=== PATIENT | female | born 1990 | race Caucasian/White ===

== ENCOUNTER 2016-10-28 21:56 | Inpatient (IN) | payer BC, OTHER ==
[2016-10-28] MEDS ORDERED: DEXTROSE 5%-LACTATED RINGERS 1,000 ML IV SCH (22:30)
--- NOTE | 2016-10-28 23:34 | HP ---
Past Medical History - Primary Care Physician PCP:: Audrey Pimentel - Admission Chief Complaint: 26 yo P0 @ 38.1 wks c/o LOF, -VB, +FM, some ctx;. gush witnessed on the beding, Nit + History of Present Illness: LOF clear @ 7:45pm History Source: Patient - Past Medical History Pulmonary: Yes: Asthma (Mild no attacks during , never intubated, never on steroids) ...: 1 ...Para: 0 ... 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 [employer] Home Medications - Allergies Allergies/Adverse Reactions: Allergies Allergy/AdvReac Type Severity Reaction Status Date / Time No Known Allergies Allergy Verified 06/03/16 10:01 - Home Medications Home Medications: Ambulatory Orders NK [No Known Home Medication] 06/03/16 Home Medications (free text): Albuterol neb Family Disease History - Family Disease History Family History: Denies Review of Systems - Review of Systems Constitutional: reports: No Symptoms Eyes: reports: No Symptoms HENT: reports: No Symptoms Neck: reports: No Symptoms Cardiovascular: reports: No Symptoms Respiratory: reports: No Symptoms Gastrointestinal: reports: No Symptoms Genitourinary: reports: No Symptoms Breasts: reports: No Symptoms Reported Musculoskeletal: reports: No Symptoms Integumentary: reports: No Symptoms Neurological: reports: No Symptoms, Weakness Hematology/Lymphatic: reports: No Symptoms Psychiatric: reports: No Symptoms Pain Intensity: 1 Physical Exam - Maternity Vital Signs: Vital Signs Temperature 99.4 F 10/28/16 23:00 Pulse Rate 92 H 10/28/16 23:00 Respiratory Rate 92 H 10/28/16 23:00 Blood Pressure 119/71 10/28/16 23:00 O2 Sat by Pulse Oximetry (%) Constitutional: Yes: Well Nourished HENT: Yes: WNL Neck: Yes: WNL Cardiovascular: Yes: WNL Lungs: Clear to auscultation Breast(s): Yes: WNL - Abdominal Exam/OB Fundal Height: 38 (EFW 6.5lb) Number of Fetuses: Single Presentation: Vertex Contractions: Yes Regularity: Irregular Intensity: Mild Monitor Mode: External Heart Rate (range): 140 Heart Rate Location: [facility] Category: I Accelerations: Uniform Decelerations: None - Vaginal Exam/OB Vaginal Bleediing: No Speculum Exam: No (gross pulling, leackage) Dilatation (cm): 2 Effacement (%): 70 Amniotic Membrane Status: Ruptured Nitrazine Test: Positive Amniotic Fluid: Yes: Clear Presentation: Vertex/Position Station: -3 - Physical Exam Extremities: Yes: WNL Psychiatric: Yes: WNL Problem List - Problems (1) Asthma affecting , antepartum Code(s): O99.519 - DISEASES OF THE RESP SYS COMP , UNSP TRIMESTER J45.909 - UNSPECIFIED ASTHMA, UNCOMPLICATED Assessment/Plan 26 yo P0 @ 38.1 wks with PROM in early labor Admit to L&D Send Admit labs MF status reassuring Start Pitocin augmentation Pain management as needed
[2016-10-28 23:44] LABS: BASOPHIL 1.1 % (0-2.0); EOSINOPHIL 1.8 % (0-4.5); MCH 29.5 pg (25.7-33.7); MCHC 33.8 g/dl (32.0-36.0); MEAN CELL VOLUME 87.2 fl (80-96); MEAN PLT VOLUME 7.9 fl (7.5-11.1); NEUTROPHILS 65.6 % (42.8-82.8); PLATELET COUNT 332 K/MM3 (134-434); RDW 13.8 % (11.6-15.6); WHITE BLOOD COUNT 10.8 K/mm3 (4.0-10.0)
[2016-10-28 23:58] LABS: INR 0.93 (0.82-1.09); PROTHROMBIN TIME (PATIENT) 10.2 SEC (9.98-11.88)
[2016-10-29] MEDS ORDERED: OXYTOCIN 15 UNITS/ LR 250 ML 250 ML IVPB SCH
[2016-10-29 00:08] LABS: CALCIUM 8.9 mg/dL (8.5-10.1); CREATININE 0.6 mg/dL (0.55-1.02)
[2016-10-29 00:35] LABS: HIV 1 & 2 AB NEGATIVE; HIV 1 AGp24 NEGATIVE
[2016-10-29 01:42] VITALS: BMI 32.9
[2016-10-29] MEDS ORDERED: BUTORPHANOL TARTRATE 1 MG/ML VIAL IVPB ONE (03:00)
[2016-10-29] MEDS ORDERED: PROMETHAZINE HCL 25 MG/1 ML VIAL IVPB ONE (03:00)
[2016-10-29] MEDS ORDERED: ELECTROLYTE-148 SOLN 500 ML IV ONE (05:45)
[2016-10-29] MEDS ORDERED: FENTANYL/BUPIVACAINE/NS/PF - PCEA - 50 ML DISP.SYRIN EP SCH (06:20)
[2016-10-29] MEDS: ELECTROLYTE-148 SOLN 1,000 ML IV SCH ×2 (06:30→11:30)
--- NOTE | 2016-10-29 07:21 | PN ---
Ante-Partal Exam - Subjective Subjective: 26 yo P0 @ 38.2 wks with PROM @ 7:45 am Now on 4mU/min of Pitocin, comfortable with epidural Vital Signs: Vital Signs Temperature 98.2 F 10/29/16 07:00 Pulse Rate 77 10/29/16 06:45 Respiratory Rate 18 10/29/16 06:45 Blood Pressure 122/73 10/29/16 06:45 O2 Sat by Pulse Oximetry (%) 97 10/29/16 06:45 Bleeding: No Headache: No Visual changes: No Right upper quadrant pain: No Pain (scale 1-10): 1 (feels mild pressure) - Contractions Contractions: Yes Regularity: Regular Intensity: Mild/Mod Monitor Mode: External - Exam during Labor Heart Rate: 145 Variability: Moderate Heart Rate Location: Midline Category: I Monitor Accelerations: Present Monitor Decelerations: None Exam: Vaginal Dilatation (cm): 2 Effacement (%): 80 Amniotic Membrane Status: Ruptured Nitrazine Test: Positive Amniotic Fluid: Clear Presentation: Vertex Station: -2 (EFW : 6.5lb, Exam by the nurse @ 6:30am) - Assessment/Plan Assessment/Plan: 26yo P0 @ 38.2 wks PROM, augmented with Pitocin in early labor GBS unknown, will treat as per guidelines, currently afebrile, no tachycardia, less than 18hr ROM MF Status reasuring cont current care will minimize exams to decrease infection risk
[2016-10-29] MEDS ORDERED: TUBERCULIN PPD 5 TU/0.1ML SYRINGE (IN PATIENT USE ONLY) ID ONE (09:00)
--- NOTE | 2016-10-29 11:01 | PN ---
Ante-Partal Exam - Subjective Subjective: 26 yo P 0 @ 38.2 with PROM feels pressure with ctx only, + LOF, -VB, +FM GBS neg Vital Signs: Vital Signs Temperature 99.2 F 10/29/16 10:00 Pulse Rate 90 10/29/16 10:00 Respiratory Rate 18 10/29/16 10:00 Blood Pressure 119/77 10/29/16 10:00 O2 Sat by Pulse Oximetry (%) 100 10/29/16 10:00 Bleeding: No Headache: No Visual changes: No Right upper quadrant pain: No - Contractions Contractions: Yes Regularity: Irregular Intensity: Mild/Mod Monitor Mode: External - Exam during Labor Heart Rate: 150 Variability: Moderate Heart Rate Location: Midline Category: I Monitor Accelerations: Present Monitor Decelerations: None Exam: Vaginal Dilatation (cm): 6 Effacement (%): 90 Amniotic Membrane Status: Ruptured Amniotic Fluid: Clear Presentation: Vertex Station: -2 - Assessment/Plan Assessment/Plan: 26 yo P0 @ 38.2 weeks now in active labor cont. Pitocin augmentation, now on 3mu/MIN mf STATUS REASURING
--- NOTE | 2016-10-29 11:44 | PN ---
Progress Note (short form) - Note Progress Note: 26 yo P0 @ 38wks with PROM for 17hr GBS neg now with temp of 100.1 FHR 150s good varriability, no decels, + accels TOCO ctx Q 2-3 min Start treating for presumed Chorioamnionitis Abx Unasyn, Gent, Clinda and Rectal Tylenol cont IOL ice packs to groin and armpits Problem List - Problems (1) Asthma affecting , antepartum Code(s): O99.519 - DISEASES OF THE RESP SYS COMP , UNSP TRIMESTER J45.909 - UNSPECIFIED ASTHMA, UNCOMPLICATED
[2016-10-29] MEDS: ACETAMINOPHEN 325 MG TABLET (FP) PO PRN (11:45)
[2016-10-29] MEDS ORDERED: ACETAMINOPHEN 650 MG SUPP.RECT PR PRN (11:51)
[2016-10-29] MEDS ORDERED: CLINDAMYCIN 600MG PREMIX IVPB 50 ML IVPB SCH (12:00)
[2016-10-29] MEDS ORDERED: ACETAMINOPHEN 325 MG SUPP.RECT PR PRN (12:08)
[2016-10-29] MEDS ORDERED: AMPICILLIN NA/SULBACTAM NA 1.5 GM/100 ML PRE-DOCKED IVPB ONE (12:15)
[2016-10-29] MEDS ORDERED: AMPICILLIN NA/SULBACTAM NA 1.5 GM/100 ML PRE-DOCKED IVPB SCH (12:15)
[2016-10-29] MEDS ORDERED: GENTAMICIN 80 MG PREMIXED IVPB 100 ML IVPB SCH (13:00)
[2016-10-29] MEDS ORDERED: CITRIC ACID/SODIUM CITRATE 30 ML UNIT-DOSE CUP PO ONE (13:10)
[2016-10-29] MEDS ORDERED: IBUPROFEN 800 MG/8 ML IJ IVPB PRN ×2 (13:37→15:36)
[2016-10-29] MEDS ORDERED: ONDANSETRON 4 MG/2 ML VIAL IVPUSH PRN (13:37)
[2016-10-29 14:24] LABS: ARTERIAL BLD GAS O2 SATURATION 9.4 % (90-98.9); ARTERIAL BLOOD GAS BASE EXCESS -2.2 meq/l (-2-2); ARTERIAL BLOOD GAS HCO3 24.7 meq/L (22-26); ARTERIAL BLOOD GAS PO2 8.8 mmHg (80-100)
[2016-10-29 14:25] LABS: LPM/O2% R/A; PT. ON O2? n; TYPE OF O2 R/A
[2016-10-29 14:28] LABS: ART PUNCT SITE OTHER; ARTERIAL BLD GAS O2 SATURATION 41.7 % (90-98.9); ARTERIAL BLOOD GAS BASE EXCESS -2.7 meq/l (-2-2); ARTERIAL BLOOD GAS HCO3 22.4 meq/L (22-26); ARTERIAL BLOOD GAS PO2 20.2 mmHg (80-100); ARTERIAL BLOOD GAS pH 7.35 (7.35-7.45); LPM/O2% R/A; PT. ON O2? NO; TYPE OF O2 R/A
[2016-10-29] MEDS ORDERED: AMPICILLIN NA/SULBACTAM NA 1.5 GM in SODIUM CHLORIDE 100 ML IVPB SCH (15:00)
--- NOTE | 2016-10-29 15:31 | PN ---
Delivery - Delivery Section: Primary (26 yo P0 with Chorioamnionitis, Tachicardia, failure to dialate) Type of Anesthesia: Epidural EBL (cc): 700 Delivery, Single - Stages of Labor Placenta: Yes: Expressed - Condition of Community Leader/Forklift Driver Present: Yes Name: Jacqui Cole Gender: Male Weight: 6 lb 14 oz Position: OP - 1 Minute Total Score: 9 5 Minutes Total Score: 9 - Feeding Plan Initial Plan: Exclusive throughout hospitalization Benefits of Exclusively reinforced: Yes Remarks - Remarks Remarks: UO 100cc Fluids 1400cc 2cm downward Left extension Uterus closed in 2 layers with 0-Biosin Peretoneum closed with 2-0 Chromic Muscle reapproximated with 2-0 Chromic SQ closed with 2-0 Chromic Skin closed with 4-0 Biosin
[2016-10-29] MEDS ORDERED: METHYLERGONOVINE MALEATE 0.2 MG/1 ML AMP IM PRN (15:36)
[2016-10-29] MEDS ORDERED: diphenhydrAMINE HCL 25 MG CAPSULE (FP) PO PRN (15:36)
[2016-10-29] MEDS ORDERED: BENZOCAINE 20% 57 GM BOTTLE TP PRN (15:36)
[2016-10-29] MEDS ORDERED: oxyCODONE HCL 5 MG TABLET PO PRN (15:36)
[2016-10-29] MEDS ORDERED: WITCH HAZEL 50% (TUCKS) 40 PAD/JAR PAD TP PRN (15:36)
[2016-10-29] MEDS ORDERED: BENZOCAINE 28 GM HEMORRHOIDAL OINTMENT PR PRN (15:36)
[2016-10-29] MEDS ORDERED: DEXTROSE 5%-LACTATED RINGERS 1,000 ML IV SCH (15:45)
[2016-10-29] MEDS ORDERED: OXYTOCIN 20 UNITS in 0.9% NS 1,000 ML IV SCH (15:45)
[2016-10-29] MEDS: CLINDAMYCIN 600MG PREMIX IVPB 50 ML IVPB SCH ×2 (17:37→23:20)
[2016-10-29] MEDS: AMPICILLIN - 100 ML IVPB SCH (18:30)
[2016-10-29] MEDS: GENTAMICIN 80 MG PREMIXED IVPB 100 ML IVPB SCH (20:50)
[2016-10-30] MEDS: AMPICILLIN - 100 ML IVPB SCH ×3 (00:21→12:29)
[2016-10-30] MEDS: CLINDAMYCIN 600MG PREMIX IVPB 50 ML IVPB SCH ×2 (05:13→15:26)
[2016-10-30] MEDS: GENTAMICIN 80 MG PREMIXED IVPB 100 ML IVPB SCH ×2 (05:13→13:43)
[2016-10-30 08:10] LABS: BASOPHIL 0.3 % (0-2.0); EOSINOPHIL 0.9 % (0-4.5); MCHC 33.8 g/dl (32.0-36.0); MEAN CELL VOLUME 88.6 fl (80-96); MEAN PLT VOLUME 7.2 fl (7.5-11.1); NEUTROPHILS 77.2 % (42.8-82.8); PLATELET COUNT 252 K/MM3 (134-434); RDW 14.1 % (11.6-15.6); WHITE BLOOD COUNT 14.5 K/mm3 (4.0-10.0)
--- NOTE | 2016-10-30 13:31 | PN ---
Post Progress Note - Subjective Subjective: 26 yo P1 now s/p 1'c/s for failure to dilate, Chorioamnionitis, Tachycardia, POD # 1 Voiding, ambulating, +flatus, pain well controlled Type of Delivery: Primary C/S Vital Signs: Vital Signs Temperature 98.8 F 10/30/16 06:00 Pulse Rate 88 10/30/16 06:00 Respiratory Rate 20 10/30/16 06:00 Blood Pressure 110/75 10/30/16 06:00 O2 Sat by Pulse Oximetry (%) 99 10/29/16 16:30 Breast Exam: Yes: Soft Uterus: Yes: Fundus Firm Incision: Yes: Dressing dry and intact, Sutures intact Abdomen/GI: Yes: Abdomen soft, Passing flatus Activity: Ambulating - Labs Labs: CBC WBC 14.5 K/mm3 (4.0-10.0) H D 10/30/16 07:00 RBC 3.56 M/mm3 (3.60-5.2) L D 10/30/16 07:00 Hgb 10.7 GM/dL (10.7-15.3) D 10/30/16 07:00 Hct 31.5 % (32.4-45.2) L D 10/30/16 07:00 MCV 88.6 fl (80-96) 10/30/16 07:00 MCHC 33.8 g/dl (32.0-36.0) 10/30/16 07:00 RDW 14.1 % (11.6-15.6) 10/30/16 07:00 Plt Count 252 K/MM3 (134-434) D 10/30/16 07:00 MPV 7.2 fl (7.5-11.1) L 10/30/16 07:00 Neutrophils % 77.2 % (42.8-82.8) 10/30/16 07:00 Lymphocytes % 12.6 % (8-40) D 10/30/16 07:00 Monocytes % 9.0 % (3.8-10.2) 10/30/16 07:00 Eosinophils % 0.9 % (0-4.5) 10/30/16 07:00 Basophils % 0.3 % (0-2.0) 10/30/16 07:00 Problem List - Problems (1) Asthma affecting , antepartum Assessment/Plan: 26 yo P1 s/p 1' C/S, POD # 1 Doing well, VSS, Afibrile Breast/Bottle feeding Pain well controlled cont. Routine PP care Code(s): O99.519 - DISEASES OF THE RESP SYS COMP , UNSP TRIMESTER J45.909 - UNSPECIFIED ASTHMA, UNCOMPLICATED
[2016-10-30] MEDS ORDERED: BISACODYL 10 MG SUPP.RECT RC PRN (15:37)
[2016-10-30] MEDS ORDERED: INFLUENZA VACCINE 45 MCG/0.5 ML (MDV 16-17) IM ONE (17:00)
[2016-10-30] MEDS ORDERED: DIPHTH,PERTUSS(ACELL),TET 0.5 ML DISP.SYRIN IM ONE (17:00)
[2016-10-30] MEDS ORDERED: VACCINE 60 MCG/0.5 ML (P/F DISP.SYRIN 16-17) IM ONE (17:00)
[2016-10-30] MEDS: ACETAMINOPHEN 325 MG TABLET (FP) PO PRN (19:10)
[2016-10-30] MEDS: IBUPROFEN 600 MG TABLET (FP) PO PRN (19:11)
[2016-10-30] MEDS: SIMETHICONE 80 MG TAB.CHEW (FP) PO PRN (19:12)
[2016-10-30] MEDS: SENNOSIDES/DOCUSATE COMBO (SENNA PLUS) TABLET (UD) PO PRN (20:42)
--- NOTE | 2016-10-30 20:47 | OP ---
DATE OF OPERATION: 10/29/2016 ATTENDING PHYSICIAN: Audrey Pimentel MD MOTION PICTURE COMMENTATOR: Lizzy Miller MD PREOPERATIVE DIAGNOSIS: A 26-year-old, para 0, at 38 weeks 2 days, with failure to dilate, chorioamnionitis, and pseudo-tachycardia. TYPE OF ANESTHESIA: Epidural. POSTOPERATIVE DIAGNOSIS: A 26-year-old, para 0, at 38 weeks 2 days, with failure to dilate, chorioamnionitis, and pseudo-tachycardia. PROCEDURE: Primary low-segment transverse section via Pfannenstiel skin incision. ESTIMATED BLOOD LOSS: 700 mL. IV FLUIDS: 1400 mL. URINE OUTPUT: 100 mL of clear urine. FINDINGS: Maternal anatomy normal uterus tubes and ovaries, 2 cm downward left lower segment extension. CLOSURE: Uterine 2-layer closure with 0 Biosyn, peritoneum closed with 2-0 chromic, muscle reapproximated with 2-0 chromic, subcutaneous reapproximated with 2-0 chromic, and skin closed with 4-0 Biosyn. SPECIMENS SUBMITTED: Cord blood. PATIENT CONDITION: To recovery room in stable condition and to the NICU. PROCEDURE DESCRIPTION: After ensuring informed consent, patient was taken to the operating room, where patient was identified and the procedure was confirmed. Once epidural anesthesia was in place and found to be adequate, patient was positioned on the operating table in dorsal supine position with left lateral tilt, and prepped and draped in the usual sterile fashion. A Pfannenstiel skin incision was made with the scalpel and carried down to the level of fascia. Fascia was nicked in the midline and excision was extended bilaterally with Bovie cautery, with good visualization of underlying muscle. Superior aspect of fascial incision was elevated with Parvez clamp and underlying muscle bellies were bluntly dissected off overlying fascia. Bovie electrocautery was used to dissect the median raphe from overlying fascia. Attention was turned to the lower aspect of fascial incision and it was taken down off of the underlying muscle bellies in a similar fashion. The rectus muscle was in the midline, peritoneum was identified, tented and entered bluntly and peritoneal defect was extended bilaterally with Bovie cautery and bluntly, with good visualization of abdominal contents. The uterine rotation was noted to be towards patient's left. Bladder blade was inserted and vesicouterine peritoneum was elevated with pickups, entered sharply with Metzenbaum scissors, and extended bilaterally. Bladder flap was developed and bladder blade was reinserted and lower uterine incision was made with the scalpel. Hysterotomy was extended in superior and lateral fashion with bandage scissors, with good visualization of underlying fetus. Subsequently, the calender operator helper's hand was inserted into the uterine cavity. The infant, vertex in OP presentation, was delivered atraumatically. The rest of the infant was delivered without any difficulty. Cord was clamped and cut and infant was handed to the pediatric team. Cord gases were sent at that time and cord blood was obtained. Placenta was delivered via uterine massage and gentle traction. Uterus was subsequently cleared of clots and debris and left intracorporeally, and hysterotomy was closed with 0 Biosyn in running locking fashion in 2 layers. The 2 cm lower uterine extension was noted and repaired separately. Excellent hemostasis was obtained. Peritoneum was reapproximated subsequently with 2-0 chromic and rectus muscle was also reapproximated with 2-0 chromic. Normal anatomy was noted. Subsequently fascia was closed with running 0 Vicryl suture through and through without interruption. Subcutaneous tissue was irrigated, found to be hemostatic, and space was closed with 2-0 chromic and subcutaneous tissue was subsequently closed with 4-0 Biosyn in a running stitch. Sterile dressing was applied. All sponge, lap and needle counts were correct. Antibiotics were given prior to the incision. Patient tolerated procedure well and was taken to the recovery room in stable condition. Que [id number]
--- NOTE | 2016-10-31 07:35 | PN ---
Progress Note, Physician Chief Complaint: s/p c section under epidural anesthesia History of Present Illness: post op day one, DM for post op pain control - Current Medication List Current Medications: Active Medications Acetaminophen (Tylenol Suppository -) 650 mg PA Q4H PRN PRN Reason: FEVER OR PAIN Acetaminophen (Tylenol -) 650 mg PO Q4H PRN PRN Reason: FEVER OR PAIN Last Admin: 10/30/16 19:10 Dose: 650 mg Acetaminophen (Tylenol Suppository -) 325 mg PA Q4H PRN PRN Reason: FEVER OR PAIN Last Admin: 10/29/16 12:35 Dose: 325 mg Benzocaine (Americaine Ointment -) 1 applic PA PRN PRN PRN Reason: PAIN Benzocaine (Americaine 20% Alfred -) 1 spray TP PRN PRN PRN Reason: PAIN Bisacodyl (Dulcolax Suppository -) 10 mg RC PRN PRN PRN Reason: CONSTIPATION Diphenhydramine HCl (Benadryl -) 25 mg PO Q8H PRN PRN Reason: FOR ITCHING Ibuprofen (Motrin -) 600 mg PO Q4H PRN PRN Reason: PAIN Last Admin: 10/30/16 19:11 Dose: 600 mg Methylergonovine Maleate (Methergine Injection -) 0.2 mg IM Q4H PRN PRN Reason: EXCESSIVE BLEEDING Senna/Docusate Sodium (Pericolace -) 2 tablet PO HS PRN PRN Reason: CONSTIPATION Last Admin: 10/30/16 20:42 Dose: 2 tablet Simethicone (Mylicon -) 80 mg PO Q4H PRN PRN Reason: GAS Last Admin: 10/30/16 19:12 Dose: 80 mg Witch Jeannie/Glycerin (Tucks Pads -) 1 pad TP PRN PRN PRN Reason: PAIN - Objective Vital Signs: Vital Signs Temperature 99.1 F 10/30/16 21:23 Pulse Rate 104 H 10/30/16 21:23 Respiratory Rate 18 10/30/16 21:23 Blood Pressure 126/71 10/30/16 21:23 O2 Sat by Pulse Oximetry (%) 99 10/29/16 16:30 Constitutional: Yes: Well Nourished Cardiovascular: Yes: WNL Respiratory: Yes: WNL Gastrointestinal: Yes: WNL Neurological: Yes: WNL Labs: CBC, BMP 10/30/16 07:00 10/28/16 23:30 INR, PTT INR 0.93 (0.82-1.09) 10/28/16 23:30 Assessment/Plan No adverse effects of anesthetic, pain controlled, no headache, nausea or vomiting. Dept of anesthesia will sign off care at this time
[2016-10-31] MEDS: IBUPROFEN 600 MG TABLET (FP) PO PRN ×2 (07:50→19:09)
[2016-10-31] MEDS: ACETAMINOPHEN 325 MG TABLET (FP) PO PRN ×2 (07:51→19:08)
[2016-10-31] MEDS: SIMETHICONE 80 MG TAB.CHEW (FP) PO PRN ×2 (07:52→19:08)
[2016-10-31] MEDS: SENNOSIDES/DOCUSATE COMBO (SENNA PLUS) TABLET (UD) PO PRN (19:10)
--- NOTE | 2016-10-31 20:13 | PN ---
Post Progress Note - Subjective Subjective: 26 yo P1 now s/p 1' LSRT c/s, POD # 2 +flatus, ambulating, voiding, tolarating PO Type of Delivery: Primary C/S Vital Signs: Vital Signs Temperature 98.4 F 10/31/16 19:11 Pulse Rate 90 10/31/16 19:11 Respiratory Rate 20 10/31/16 19:11 Blood Pressure 126/84 10/31/16 19:11 O2 Sat by Pulse Oximetry (%) 99 10/29/16 16:30 Breast Exam: Yes: Soft Uterus: Yes: Fundus Firm, Non-tender Incision: Yes: Dressing dry and intact, Sutures intact Abdomen/GI: Yes: Abdomen soft, Tolerating PO Lochia: Yes: Rubra Lochia, amount: Small Extremities: Yes: Calves non-tender Activity: Ambulating - Labs Labs: CBC WBC 14.5 K/mm3 (4.0-10.0) H D 10/30/16 07:00 RBC 3.56 M/mm3 (3.60-5.2) L D 10/30/16 07:00 Hgb 10.7 GM/dL (10.7-15.3) D 10/30/16 07:00 Hct 31.5 % (32.4-45.2) L D 10/30/16 07:00 MCV 88.6 fl (80-96) 10/30/16 07:00 MCHC 33.8 g/dl (32.0-36.0) 10/30/16 07:00 RDW 14.1 % (11.6-15.6) 10/30/16 07:00 Plt Count 252 K/MM3 (134-434) D 10/30/16 07:00 MPV 7.2 fl (7.5-11.1) L 10/30/16 07:00 Neutrophils % 77.2 % (42.8-82.8) 10/30/16 07:00 Lymphocytes % 12.6 % (8-40) D 10/30/16 07:00 Monocytes % 9.0 % (3.8-10.2) 10/30/16 07:00 Eosinophils % 0.9 % (0-4.5) 10/30/16 07:00 Basophils % 0.3 % (0-2.0) 10/30/16 07:00 Problem List - Problems (1) Asthma affecting , antepartum Code(s): O99.519 - DISEASES OF THE RESP SYS COMP , UNSP TRIMESTER J45.909 - UNSPECIFIED ASTHMA, UNCOMPLICATED Assessment/Plan 26 yo P 1 now s/o 1'LST c/s VSS, Afibrile Doing well CBC tonight Baby boy for Circumcision, consent signed Dulcolax suppository cont routine PP care
[2016-10-31 21:44] LABS: MCHC 32.8 g/dl (32.0-36.0); MEAN CELL VOLUME 88.4 fl (80-96); MEAN PLT VOLUME 7.5 fl (7.5-11.1); PLATELET COUNT 328 K/MM3 (134-434); RDW 14.1 % (11.6-15.6); WHITE BLOOD COUNT 11.4 K/mm3 (4.0-10.0)
[2016-10-31 22:27] LABS: PLATELET ESTIMATE ADEQUATE (NORMAL)
--- NOTE | 2016-11-01 07:00 | PN ---
Post Progress Note - Subjective Subjective: 26 yo P 1 now POD # 3 no complains, +BM Type of Delivery: Primary C/S Vital Signs: Vital Signs Temperature 98.4 F 10/31/16 19:11 Pulse Rate 90 10/31/16 19:11 Respiratory Rate 20 10/31/16 19:11 Blood Pressure 126/84 10/31/16 19:11 O2 Sat by Pulse Oximetry (%) 99 10/29/16 16:30 Breast Exam: Yes: Engorged Uterus: Yes: Fundus Firm, Non-tender Incision: Yes: Sutures intact Abdomen/GI: Yes: Abdomen soft, Tolerating PO Lochia: Yes: Rubra Lochia, amount: Small Extremities: Yes: Calves non-tender Activity: Ambulating - Labs Labs: CBC WBC 11.4 K/mm3 (4.0-10.0) H 10/31/16 21:30 RBC 3.97 M/mm3 (3.60-5.2) 10/31/16 21:30 Hgb 11.5 GM/dL (10.7-15.3) 10/31/16 21:30 Hct 35.1 % (32.4-45.2) 10/31/16 21:30 MCV 88.4 fl (80-96) 10/31/16 21:30 MCHC 32.8 g/dl (32.0-36.0) 10/31/16 21:30 RDW 14.1 % (11.6-15.6) 10/31/16 21:30 Plt Count 328 K/MM3 (134-434) D 10/31/16 21:30 MPV 7.5 fl (7.5-11.1) 10/31/16 21:30 Neutrophils % 67.0 % (42.8-82.8) 10/31/16 21:30 Lymphocytes % 22.0 % (8-40) D 10/31/16 21:30 Monocytes % 8.0 % (3.8-10.2) 10/31/16 21:30 Eosinophils % 2.0 % (0-4.5) D 10/31/16 21:30 Basophils % 0.3 % (0-2.0) 10/30/16 07:00 Differential Comment Manual diff done 10/31/16 21:30 Reactive Lymphocytes 1 % (0-80) 10/31/16 21:30 Platelet Estimate Adequate (NORMAL) 10/31/16 21:30 Platelet Comment Few giant plts 10/31/16 21:30 RBC Morphology Appears normal 10/31/16 21:30 Morphology Comment Slide scanned 10/31/16 21:30 Problem List - Problems (1) Asthma affecting , antepartum Code(s): O99.519 - DISEASES OF THE RESP SYS COMP , UNSP TRIMESTER J45.909 - UNSPECIFIED ASTHMA, UNCOMPLICATED Assessment/Plan 26 yo P1 s/p 1'c/s VSS, Afiblile, H/H stable, WBC normalizing Plan to d/c 11/02/16 NPV for 6wks RTO 1 amd 6 wks Baby circumcised Rh+
--- NOTE | 2016-11-01 07:06 | DS ---
Physical Exam-BREASTER Vital Signs: Vital Signs Temperature 98.4 F 10/31/16 19:11 Pulse Rate 90 10/31/16 19:11 Respiratory Rate 20 10/31/16 19:11 Blood Pressure 126/84 10/31/16 19:11 O2 Sat by Pulse Oximetry (%) 99 10/29/16 16:30 Constitutional: Yes: Well Nourished Eyes: Yes: WNL HENT: Yes: WNL Neck: Yes: WNL Cardiovascular: Yes: WNL Respiratory: Yes: WNL Gastrointestinal: Yes: WNL Pelvis: Yes: WNL External Genitalia: Yes: Normal Internal Exam Deferred: Yes Breast(s): Yes: WNL Musculoskeletal: Yes: WNL Extremities: Yes: WNL ...Motor Strength: WNL Psychiatric: Yes: WNL Labs: CBC, BMP 10/31/16 21:30 10/28/16 23:30 Delivery - Delivery Section: Primary (26 yo P0 with Chorioamnionitis, Tachicardia, failure to dialate) Type of Anesthesia: Epidural Episiotomy/Laceration: None EBL (cc): 700 Delivery, Single - Stages of Labor Date 1st Stage Initiatied: 10/29/16 Time 1st Stage Initiated: 12:20 Date of Delivery: 10/29/16 Time of Delivery: 14:04 Time Placenta Delivered: 14:05 Placenta: Yes: Expressed - Condition of Infant Glove Brusher/Graphics Programmer Present: Yes Name: Jacqui Cole Infant Gender: Male Weight: 6 lb 14 oz Position: OP Total Hours ROM (Hrs/Mins): 18/19 - 1 Minute Total Score: 9 5 Minutes Total Score: 9 - [place] Feeding Plan Initial Plan: Exclusive throughout hospitalization Benefits of Exclusively reinforced: Yes Discharge Summary Reason For Visit: LABOR ADMIT Current Active Problems Asthma affecting , antepartum (Acute) Condition: Improved - Instructions Diet, Activity, Other Instructions: Physical activity Resume your normal everyday activity as tolerated no heavy lifting or exercise until seen by your surgeon. You may walk unlimited mildred of and climb stairs. You may resume driving the car when you feel safe and comfortable behind the wheel. No sexual activity as instructed. Wound care If you have a bandage, leave it on, and keep dry for 48-72 hours. After that time discard the outer bandage. If they are tapes on the skin under the out of bandage leave them in place. They will peel off in the next 7 to 10 days. Do Not Peel them off. You may shower the day after surgery. If there are tapes present on the skin, you may shower over them. Diet There are no dietary restrictions. Eat healthy, high-fiber foods. Drink 6 to 8 glasses of liquid each day. This will assist in keeping your bowels are regular. Pain management You may take Tylenol or acetaminophen or Ibuprofen (for example, Motrin, Advil etc.) from my pain prescription medication is ordered should be taken as prescribed for moderate to severe pain. Call MD for any of the following: Severe pain not relieved by medication Fever of 101 or higher Excessive bleeding or drainage on dressing Inability to urinate Referrals: Audrey Pimentel MD [Staff Physician] - Disposition: HOME - Home Medications Comprehensive Discharge Medication List: Ambulatory Orders NK [No Known Home Medication] 06/03/16
[2016-11-01 08:56] LABS: MCH 30.3 pg (25.7-33.7); MCHC 34.2 g/dl (32.0-36.0); MEAN CELL VOLUME 88.5 fl (80-96); MEAN PLT VOLUME 7.7 fl (7.5-11.1); PLATELET COUNT 353 K/MM3 (134-434); RDW 13.9 % (11.6-15.6); WHITE BLOOD COUNT 9.8 K/mm3 (4.0-10.0)
[2016-11-01] MEDS: SIMETHICONE 80 MG TAB.CHEW (FP) PO PRN ×2 (16:23→21:48)
[2016-11-01] MEDS: IBUPROFEN 600 MG TABLET (FP) PO PRN ×2 (16:24→21:47)
[2016-11-01] MEDS: ACETAMINOPHEN 325 MG TABLET (FP) PO PRN ×2 (16:25→21:48)
[2016-11-02 09:14] VITALS: BP 132/80; PULSE 96; TEMP 97.9
--- NOTE | 2016-11-04 15:38 | PATH ---
Surgical Pathology Report Patient Name: MAGNOLIA SMALL [facility]. Rec. #: [id number] /Age/Gender: 1990 (Age: 26) / F Account: [id number] Location: [facility] OBS/LIFE SCIENTIST Taken: 10/29/2016 Received: 11/01/2016 Reported: 11/04/2016 Physicians: Audrey Pimentel M.D. Specimen(s) Received PLACENTA Clinical History 38.2 weeks, chorioamnionitis, ruptured membranes x18 hours, failure to dilate Primary c/section Final Diagnosis PLACENTA, DELIVERY: FOCALLY DISRUPTED THIRD TRIMESTER PLACENTA WITH FOCAL PARENCHYMAL HEMORRHAGE, MODERATE PREVILLOUS, PERIVILLOUS, AND PRECHORIONIC FIBRIN DEPOSITION, THREE VESSEL UMBILICAL CORD, AND PLACENTAL MEMBRANES WITH ACUTE CHORIOAMNIONITIS. Electronically Signed Jordin Max M.D. Gross Description The specimen is received fresh, labeled "placenta" and is a 428 gram, 15.5 x 14.5 x 2.3 cm placenta with attached membranes and umbilical cord. The attached membranes are laguna with focal opacities and insert marginally. The umbilical cord measures 12.5 cm in length and averages 1 cm in diameter. The cord inserts eccentrically, 3.5 cm to the nearest margin. No true knots or strictures are identified. Cut surface of the umbilical cord reveals 3 vessels. The surface is wells-blue with fibrin deposition and appropriate caliber vessels. The maternal surface is red-brown and intact. Sectioning reveals a 1.5 cm in greatest dimension hemorrhagic intraparenchymal lesion. The remaining placental parenchyma is red-brown and spongy. Skewer Up sections are submitted in 4 cassettes as follows: 1-membrane rolls and umbilical cord; 2-lesion; 3-4-full thickness sections of placenta. /11/03/201611/03/2016
== END 2016-11-02 12:50 | disposition home or self-care (01) | DRG 765 ==
LOC: JDEL 21:56 → JLDR 22:30 → J3W 10-29 17:23
PROVIDERS: ADMIT Obstetrics & Gynecology; ATTEND Obstetrics & Gynecology
PROC: 10D00Z1 Extraction of Products of Conception, Low, Open Approach (ICD-10-PCS; principal; 2016-10-29)
DX: O62.0 Primary inadequate contractions (principal); O41.1230 Chorioamnionitis, third trimester, not applicable or unspecified; O76 Abnormality in fetal heart rate and rhythm complicating labor and delivery; O42.92 Full-term premature rupture of membranes, unspecified as to length of time between rupture and onset of labor; O99.519 Diseases of the respiratory system complicating pregnancy, unspecified trimester; J45.909 Unspecified asthma, uncomplicated; Z3A.38 38 weeks gestation of pregnancy; Z37.0 Single live birth
CPT/HCPCS: 36415; 36600; 80048; 82803; 85025; 85610; 85730; 86593; 86900; 86901; 86922; 87389; 88307-TC